=== PATIENT | male | born 1965 | race Caucasian/White ===

== ENCOUNTER 2024-06-10 09:58 | Observation (INO) ==
[2024-06-10 10:19] LABS: ABS Lymphocytes 0.9 10^3/uL (1.0-4.8); ABS Monocytes 0.9 10^3/uL (0.0-1.1); Eosinophil % 1.1 %; Hematocrit 18.3 % (38-53); Lymphocyte % 33.7 %; Mean Corpuscular Hemoglobin 28.5 pg (27-33); Mean Corpuscular Volume 89.2 fL (80-97); Mean Platelet Volume 8.5 fL (7.5-11.2); Red Blood Count 2.05 10^6/uL (4.06-5.63); Red Cell Distribution Width 14.7 % (12-17); White Blood Count 2.8 10^3/uL (3.6-10.2)
[2024-06-10] MEDS ORDERED: Lidocaine 2% PF 5 ML VIAL ONE (10:20)
[2024-06-10 10:22] LABS: ABS Neutrophils 0.9 10^3/uL (1.5-7.6); Hemoglobin 5.9 g/dL (13.2-16.3); Platelet Count 66 10^3/uL (150-450)
[2024-06-10 13:33] LABS: Albumin 3.3 g/dL (3.2-5.2); Albumin/Globulin Ratio 1.2 (1-3); Calcium 8.5 mg/dL (8.6-10.3); Creatinine, Serum 0.67 mg/dL (0.67-1.17); Globulin 2.8 g/dL (2-4); Potassium 4.1 mmol/L (3.5-5.0); Total Bilirubin 0.5 mg/dL (0.2-1.0); Total Protein 6.1 g/dL (6.4-8.9); eGFR CKD-EPI 109.6 (>60)
[2024-06-10 13:39] LABS: Ferritin 642.5 ng/mL (24-336)
[2024-06-10 14:56] LABS: Erythrocyte Sed Rate > 120 mm/Hr (0-19)
[2024-06-10 21:33] VITALS: BP 125/80
[2024-06-14 12:18] LABS: Flag, M-protein Isotype Positive (Negative); Immunoglobulin A (IgA), S 22 mg/dL (61 - 356); Immunoglobulin G (IgG), S 329 mg/dL (767 - 1590); Immunoglobulin M (IgM), S 1700 mg/dL (37 - 286); M-protein MK 1.262 g/dL
== END 2024-06-10 21:45 | disposition home or self-care (01) ==
LOC: CHOA 09:58 → SSU 09:58
PROVIDERS: ADMIT Physician Assistant; ATTEND Internal Medicine Hematology & Oncology